=== PATIENT | female | born 1930 | race Caucasian/White ===

== ENCOUNTER 2017-08-21 17:43 | Emergency (ER) | payer MEDICARE ==
[~2017-08-21] VITALS: Ht 152.4 cm; Wt 68.2 kg
[2017-08-21 18:03] VITALS: TEMP 36.7; Ht 152.4 cm; Wt 68.2 kg
[2017-08-21] MEDS ORDERED: GI COCKTAIL PO STA (18:05)
[2017-08-21] MEDS ORDERED: ALUMINUM/MAGNESIUM SUSP 30 ML UDC ONE (18:11)
[2017-08-21] MEDS ORDERED: LIDOCAINE HCL 2% VISC SOLN 20 ML UDC ONE (18:11)
[2017-08-21] MEDS ORDERED: VITA1CAP5 PO (18:19)
[2017-08-21] MEDS ORDERED: MEMA10TA PO (18:19)
[2017-08-21] MEDS ORDERED: DOCU-94 PO (18:19)
[2017-08-21] MEDS ORDERED: POTA10CA28 PO (18:19)
[2017-08-21] MEDS ORDERED: ASCO10003 PO (18:19)
[2017-08-21] MEDS ORDERED: RANI150T3 PO (18:19)
[2017-08-21] MEDS ORDERED: HYDR200T5 PO (18:19)
[2017-08-21] MEDS ORDERED: LEVE500T13 PO (18:19)
[2017-08-21] MEDS ORDERED: PRED-301 PO (18:19)
[2017-08-21] MEDS ORDERED: CALC500C70 PO (18:19)
[2017-08-21] MEDS ORDERED: DONE10TA12 PO (18:19)
[2017-08-21] MEDS ORDERED: MIRA100T PO (18:19)
[2017-08-21] MEDS ORDERED: APIX1TAB PO (18:19)
[2017-08-21] MEDS ORDERED: MULT-506 PO (18:19)
[2017-08-21] MEDS ORDERED: FURO-85 PO (18:19)
[2017-08-21] MEDS ORDERED: CYAN100020 PO (18:19)
[2017-08-21] MEDS ORDERED: WHEAPOW PO (18:19)
--- NOTE | 2017-08-21 18:39 | DIAGNOSTIC IMAGING REPORT ---
HEAD WITHOUT CONTRAST (CT) CT DOSE: HISTORY: Trauma fall TECHNIQUE: Multiaxial CT images of the head were performed without the use of intravenous contrast. A dose lowering technique was utilized adhering to the principles of ALARA. Comparison: None. Findings: The paranasal sinuses and mastoid air cells are clear. The calvarium and skull base are intact. The ventricles and sulci are within normal limits. There is no mass, hematoma, midline shift, or acute infarct. Mild cerebral atrophy. Moderate chronic small vessel change of the periventricular deep white matter regions. Impression: No acute intracranial abnormality. Chronic and age-related change. No acute process. The above report was generated using voice recognition software. It may contain grammatical, syntax or spelling errors. Electronically signed by: Yves Whalen M.D. 08/21/2017 6:38 PM Dictated Date/Time: 08/21/2017 6:37 PM
--- NOTE | 2017-08-21 18:44 | DIAGNOSTIC IMAGING REPORT ---
FACIAL BONES-MXILLOFAC WITHOUT CT DOSE: 1025.47 mGy.cm HISTORY: Trauma fall hit face TECHNIQUE: Multiaxial CT images of the maxillofacial region were performed and reformatted in the coronal plane without the use of contrast. A dose lowering technique was utilized adhering to the principles of ALARA. COMPARISON: None. FINDINGS: The visualized cervical spine, skull base, pterygoid plates,, lamina papyracea, orbital floors, mandible, and zygomatic arches are intact. No fractures. Nondisplaced cortical fracture right nasal bones. The maxillary spine is intact. The orbits are unremarkable. Moderate degenerative change temporomandibular joints. IMPRESSION: Nondisplaced cortical fracture right nasal bone. Moderate degenerative change temporomandibular joints. Otherwise negative study. The above report was generated using voice recognition software. It may contain grammatical, syntax or spelling errors. Electronically signed by: Yves Whalen M.D. 08/21/2017 6:42 PM Dictated Date/Time: 08/21/2017 6:38 PM
--- NOTE | 2017-08-21 18:47 | DIAGNOSTIC IMAGING REPORT ---
CERVICAL SPINE W/O CT DOSE: HISTORY: Trauma fall TECHNIQUE: Multiaxial CT images of the cervical spine were performed and reformatted in the sagittal and coronal plane without the use of contrast. A dose lowering technique was utilized adhering to the principles of ALARA. COMPARISON: None. FINDINGS: No fractures. No subluxation. Prevertebral soft tissues and the C1-C2 interval are intact. No pneumothorax. Generalized degenerative disc change at the entire cervical region. IMPRESSION: No fractures within the cervical spine. Generalized degenerative change. The above report was generated using voice recognition software. It may contain grammatical, syntax or spelling errors. Electronically signed by: Yves Whalen M.D. 08/21/2017 6:45 PM Dictated Date/Time: 08/21/2017 6:43 PM
--- NOTE | 2017-08-21 19:01 | DIAGNOSTIC IMAGING REPORT ---
R KNEE 3 VIEWS CLINICAL HISTORY: r knee pain/ b/l knee pian pain COMPARISON: None. DISCUSSION: Severe degenerative narrowing medial joint compartment right knee. Significant degenerative change patellofemoral joint. Minimal chondrocalcinosis. No acute bony abnormality. There is no evidence for soft tissue swelling. IMPRESSION: Degenerative change. Chondrocalcinosis. No acute posttraumatic bony abnormality. The above report was generated using voice recognition software. It may contain grammatical, syntax or spelling errors. Electronically signed by: Yves Whalen M.D. 08/21/2017 7:00 PM Dictated Date/Time: 08/21/2017 6:59 PM
--- NOTE | 2017-08-21 19:02 | DIAGNOSTIC IMAGING REPORT ---
L KNEE 3 VIEWS CLINICAL HISTORY: l knee pain trauma. Pain. COMPARISON: None. DISCUSSION: Anatomic alignment status post left knee total arthroplasty. Good contact between the metallic prosthetic and underlying bone. No acute bony abnormality. No significant joint effusion. There is no evidence for soft tissue swelling. IMPRESSION: No acute process status post total knee arthroplasty. The above report was generated using voice recognition software. It may contain grammatical, syntax or spelling errors. Electronically signed by: Yves Whalen M.D. 08/21/2017 7:01 PM Dictated Date/Time: 08/21/2017 7:00 PM
--- NOTE | 2017-08-21 19:03 | DIAGNOSTIC IMAGING REPORT ---
CHEST ONE VIEW PORTABLE CLINICAL HISTORY: fall trauma COMPARISON STUDY: No previous studies for comparison. FINDINGS: Mild cardia megaly. Permanent unipolar cardiac pacemaker. Lungs are clear. Diaphragms are smooth. IMPRESSION: Mild cardiomegaly. Otherwise negative study. The above report was generated using voice recognition software. It may contain grammatical, syntax or spelling errors. Electronically signed by: Yves Whalen M.D. 08/21/2017 7:02 PM Dictated Date/Time: 08/21/2017 7:01 PM
[2017-08-21 19:18] VITALS: BP 178/91; PULSE 57; O2SAT 98
--- NOTE | 2017-08-21 19:48 | EMERGENCY ROOM VISIT NOTE ---
History Report prepared by Zabrina: Lamont Sanabria Under the Supervision of: Dr. Horacio Garcia D.O. First contact with patient: 17:47 Stated Complaint: FALL History of Present Illness The patient is a 86 year old female who presents to the Emergency Room with complaints of bilateral facial pain that began 1 hour ago. She rates her pain moderate in severity. She has a past medical history of dementia with some aphasia. Per the patient's friend who is her POA, she is currently at her baseline. Prior to arrival, the patient was bent over cleaning up dog urine from her carpet. She lost her balance and landed forward onto her face. She denies any pain to any other location other than her face. Pt denies headache, change in vision, fevers, chest pain, shortness of breath, nausea, vomiting, diarrhea, pain with urination, and melena as well. She takes Eliquis daily. Her HPI is confirmed by her friend. The patient did not lose consciousness and did not become weak. She has no belly pain. If clinical to discern whether she has any true knee pain. Majority of the history was obtained from her friend who was present at bedside and when the event occurred. She has power of trial attorney. Source of History: patient, friend Onset: 1 hour ago Position: other (Bilateral face) Symptom Intensity: moderate Quality: ache Timing: constant Associated Symptoms: No LOC, No fevers, No headache, No chest pain, No SOB, No nausea, No vomiting, No melena, No diarrhea, No urinary symptoms, No weakness Review of Systems See HPI for pertinent positives & negatives. A total of 10 systems reviewed and were otherwise negative. Past Medical & Surgical Medical Problems: (1) Aphasia (2) Dementia (3) Pacemaker Family History Omitted secondary to the patient's age. Social History Smoking Status: Never Smoker Smokeless Tobacco Use: No Drug Use: none Marital Status: single Housing Status: lives with family Occupation Status: retired Current/Historical Medications Scheduled Apixaban (Eliquis), 2.5 MG PO BID Ascorbic Acid (Vitamin C), 1,000 MG PO DAILY Calcium/Vitamin D (Os-David 500 Plus D), 1 TAB PO DAILY Cyanocobalamin (Vitamin B12), 2,000 MCG PO WK Docusate Sodium (Colace), 100 MG PO QPM Donepezil Hydrochloride (Aricept), 10 MG PO QPM Furosemide (Lasix), 20 MG PO DAILY Hydroxychloroquine Sulfate (Plaquenil), 200 MG PO BID Levetiracetam (Keppra), 500 MG PO BID Memantine Hcl (Namenda), 10 MG PO BID Mirabegron (Myrbetriq Er), 25 MG PO DAILY Multivitamin (Multivitamin), 1 TAB PO DAILY Potassium Chloride (Micro-K Ext Rel), 10 MEQ PO DAILY Prednisone (Prednisone), 5 MG PO DAILY Ranitidine Hcl (Zantac), 150 MG PO DAILY Vitamin E (E400), 800 UNITS PO QPM Scheduled PRN Wheat Dextrin (Benefiber Drink Mix), 2 TSP PO QAM PRN for . Allergies Coded Allergies: Ciprofloxacin (Unverified Allergy, Unknown, ., 08/21/17) Morphine (Unverified Allergy, Unknown, ., 08/21/17) Penicillins (Unverified Allergy, Unknown, ., 08/21/17) Physical Exam Vital Signs Date Time Temp Pulse Resp B/P (MAP) Pulse Ox O2 Delivery O2 Flow Rate FiO2 08/21/17 19:18 57 18 178/91 98 08/21/17 18:03 36.7 60 18 153/86 97 Room Air Physical Exam GENERAL: alert, well appearing, well nourished, no distress, non-toxic HEAD: normal cephalic, bruising to the left side of the face. EYE EXAM: normal conjunctiva, PERRL and EOM's grossly intact NOSE EXAM: No septal hematoma. OROPHARYNX: no exudate, no erythema, lips, buccal mucosa, and tongue normal and mucous membranes are moist EARS: TMs clear b/l NECK: supple, no nuchal rigidity, no adenopathy, non-tender CHEST: stable to compression anteriorly and posteriorly. Small bruise over the left anterior medial clavicle. Pacemaker in place. LUNGS: clear to auscultation. Normal chest wall mechanics HEART: Systolic ejection murmur, S1 normal and S2 normal ABDOMEN: abdomen soft, non-tender, normo-active bowel sounds, no masses, no rebound or guarding. PELVIS: stable to compression anteriorly and posteriorly BACK: Back is symmetrical on inspection and there is no deformity, no midline tenderness, no CVA tenderness. UPPER EXTREMITIES: full active and passive range of motion of all joints without tenderness to palpation LOWER EXTREMITIES: full active and passive range of motion of all joints without tenderness to palpation, with exception of minimal pain with ROM of bilateral knees. NEURO EXAM: Awake and alert. Following commands. Patient with dementia which is at baseline per her friend. No new focal deficits. Medical Decision & Procedures ER Provider Diagnostic Interpretation: Radiology results as stated below per my review and the radiologist's interpretation: R KNEE 3 VIEWS CLINICAL HISTORY: r knee pain/ b/l knee pian pain COMPARISON: None. DISCUSSION: Severe degenerative narrowing medial joint compartment right knee. Significant degenerative change patellofemoral joint. Minimal chondrocalcinosis. No acute bony abnormality. There is no evidence for soft tissue swelling. IMPRESSION: Degenerative change. Chondrocalcinosis. No acute posttraumatic bony abnormality. The above report was generated using voice recognition software. It may contain grammatical, syntax or spelling errors. Electronically signed by: Yves Whalen M.D. 08/21/2017 7:00 PM Dictated Date/Time: 08/21/2017 6:59 PM L KNEE 3 VIEWS CLINICAL HISTORY: l knee pain trauma. Pain. COMPARISON: None. DISCUSSION: Anatomic alignment status post left knee total arthroplasty. Good contact between the metallic prosthetic and underlying bone. No acute bony abnormality. No significant joint effusion. There is no evidence for soft tissue swelling. IMPRESSION: No acute process status post total knee arthroplasty. The above report was generated using voice recognition software. It may contain grammatical, syntax or spelling errors. Electronically signed by: Yves Whalen M.D. 08/21/2017 7:01 PM Dictated Date/Time: 08/21/2017 7:00 PM HEAD WITHOUT CONTRAST (CT) CT DOSE: HISTORY: Trauma fall TECHNIQUE: Multiaxial CT images of the head were performed without the use of intravenous contrast. A dose lowering technique was utilized adhering to the principles of ALARA. Comparison: None. Findings: The paranasal sinuses and mastoid air cells are clear. The calvarium and skull base are intact. The ventricles and sulci are within normal limits. There is no mass, hematoma, midline shift, or acute infarct. Mild cerebral atrophy. Moderate chronic small vessel change of the periventricular deep white matter regions. Impression: No acute intracranial abnormality. Chronic and age-related change. No acute process. The above report was generated using voice recognition software. It may contain grammatical, syntax or spelling errors. Electronically signed by: Yves Whalen M.D. 08/21/2017 6:38 PM Dictated Date/Time: 08/21/2017 6:37 PM CHEST ONE VIEW PORTABLE CLINICAL HISTORY: fall trauma COMPARISON STUDY: No previous studies for comparison. FINDINGS: Mild cardia megaly. Permanent unipolar cardiac pacemaker. Lungs are clear. Diaphragms are smooth. IMPRESSION: Mild cardiomegaly. Otherwise negative study. The above report was generated using voice recognition software. It may contain grammatical, syntax or spelling errors. Electronically signed by: Yves Whalen M.D. 08/21/2017 7:02 PM Dictated Date/Time: 08/21/2017 7:01 PM CERVICAL SPINE W/O CT DOSE: HISTORY: Trauma fall TECHNIQUE: Multiaxial CT images of the cervical spine were performed and reformatted in the sagittal and coronal plane without the use of contrast. A dose lowering technique was utilized adhering to the principles of ALARA. COMPARISON: None. FINDINGS: No fractures. No subluxation. Prevertebral soft tissues and the C1-C2 interval are intact. No pneumothorax. Generalized degenerative disc change at the entire cervical region. IMPRESSION: No fractures within the cervical spine. Generalized degenerative change. The above report was generated using voice recognition software. It may contain grammatical, syntax or spelling errors. Electronically signed by: Yves Whalen M.D. 08/21/2017 6:45 PM Dictated Date/Time: 08/21/2017 6:43 PM FACIAL BONES-MXILLOFAC WITHOUT CT DOSE: 1025.47 mGy.cm HISTORY: Trauma fall hit face TECHNIQUE: Multiaxial CT images of the maxillofacial region were performed and reformatted in the coronal plane without the use of contrast. A dose lowering technique was utilized adhering to the principles of ALARA. COMPARISON: None. FINDINGS: The visualized cervical spine, skull base, pterygoid plates,, lamina papyracea, orbital floors, mandible, and zygomatic arches are intact. No fractures. Nondisplaced cortical fracture right nasal bones. The maxillary spine is intact. The orbits are unremarkable. Moderate degenerative change temporomandibular joints. IMPRESSION: Nondisplaced cortical fracture right nasal bone. Moderate degenerative change temporomandibular joints. Otherwise negative study. The above report was generated using voice recognition software. It may contain grammatical, syntax or spelling errors. Electronically signed by: Yves Whalen M.D. 08/21/2017 6:42 PM Dictated Date/Time: 08/21/2017 6:38 PM ED Course ED COURSE: Vital signs were reviewed and showed situational hypertension The patients medical record was reviewed The above diagnostic studies were performed and reviewed. ED treatments and interventions as stated above. 1747: The patient was evaluated in room C6. A complete history and physical examination was performed. 1805: Ordered Gi Cocktail 24 ml PO 1916: Upon reevaluation, the patient is resting.I discussed my findings with the patient and her POA and they understand and agree with the treatment plan. Based on the patients age, coexisting illnesses, exam and lab findings the decision to treat as an outpatient was made. The patient remained stable while under my care. The patient appeared well at the time of discharge. Medical Decision Differential diagnoses include major intracranial, cervical, spinal, thoracic, abdominal, pelvic and neurologic injury. Fracture, contusion, sprain, strain, laceration, abrasions included as well. Patient is an 86-year-old female who presents to ER for a fall which occurred at 4:30. It was witnessed by her friend/sheep sticker who is the POA. She notes that she fell forward and hit her head. She is currently at baseline. She does take blood thinner. CT head, face and cervical spine was remarkable for a small nasal bone fracture. X-rays of her chest and knees were unremarkable. Discussed performing blood work but the POA did not want an extensive workup. I felt this is reasonable. On reevaluation patient was stable. Cloud Automation Tester and patient were updated bedside and she was discharged follow-up as an outpatient. Discussed with Pt concerning signs and symptoms to watch out for. Pt was instructed to follow up with their PCP and discussed with the patient their option to return to the ED at anytime for persistent or worsening symptoms. The appropriate anticipatory guidance and out-patient management, including indications for return to the emergency department, were explained at length to the patient and understood. Medication Reconcilliation Current Medication List: was personally reviewed by me Blood Pressure Screening Patient's blood pressure: Elevated blood pressure Blood pressure disposition: Elevated BP felt to be situational Impression Primary Impression: Nasal bone fracture Additional Impressions: Fall Contusion of face Dementia Scribe Attestation The scribe's documentation has been prepared under my direction and personally reviewed by me in its entirety. I confirm that the note above accurately reflects all work, treatment, procedures, and medical decision making performed by me. Departure Information Dispostion Home / Self-Care Referrals No Doctor, Assigned Forms HOME CARE DOCUMENTATION FORM, IMPORTANT VISIT INFORMATION Patient Instructions ED Contusion Face, ED Fx Nasal Conf W X Ray, My [facility] Additional Instructions Please follow up with your primary care doctor with in the next 24 hours. Any worsening of your symptoms, please return to the ED immediately. This includes any fevers greater than 100.4, worsening pain, chest pain, shortness breath, persistent nausea, vomiting, unable to eat or drink, or any other concerning signs or symptoms from your standpoint. Please take Tylenol as needed for any muscle aches. Please monitor her over the next 24 hours to make sure that there is no confusion or any new complaints. Problem Qualifiers Primary Impression: Nasal bone fracture Encounter type: initial encounter Fracture type: closed Qualified Codes: S02.2XXA - Fracture of nasal bones, initial encounter for closed fracture Additional Impressions: Fall Encounter type: initial encounter Qualified Codes: W19.XXXA - Unspecified fall, initial encounter Contusion of face Encounter type: initial encounter Qualified Codes: S00.83XA - Contusion of other part of head, initial encounter Dementia Dementia type: unspecified type Dementia behavioral disturbance: without behavioral disturbance Qualified Codes: F03.90 - Unspecified dementia without behavioral disturbance
== END 2017-08-21 19:12 | disposition home or self-care (01) ==
LOC: C.EDC 17:44
DX: S02.2XXA Fracture of nasal bones, initial encounter for closed fracture (principal); S00.83XA Contusion of other part of head, initial encounter; W18.30XA Fall on same level, unspecified, initial encounter; Y93.E5 Activity, floor mopping and cleaning; Y92.009 Unspecified place in unspecified non-institutional (private) residence as the place of occurrence of the external cause; F03.90 Unspecified dementia, unspecified severity, without behavioral disturbance, psychotic disturbance, mood disturbance, and anxiety; S40.012A Contusion of left shoulder, initial encounter; R47.01 Aphasia; Z95.0 Presence of cardiac pacemaker; Z79.01 Long term (current) use of anticoagulants